=== PATIENT | female | born 1975 | race Two or more races ===

== ENCOUNTER 2019-04-12 21:18 | Emergency (ER) | payer MEDICAID ==
[~2019-04-12] VITALS: Ht 139.7 cm; Wt 65.8 kg
[2019-04-12 21:25] VITALS: BP 114/80
--- NOTE | 2019-04-12 21:25 | NUR ---
ED Nurse Note: pt walked in c/o cough and difficulty breathing x 2 wks.
--- NOTE | 2019-04-12 21:26 | NUR ---
ED Nurse Note: PT DENIES HISTORY OF ASTHMA/ COPD. PT DENIES TRYING NEW FOOD OR NEW MEDICATION. POSSIBLY ALLERGY TO ANIMAL DANDER D/T PT STATING SHE WAS PLAYING WITH A DOG
[2019-04-12] MEDS ORDERED: Albuterol ud Inhalation HHN ONE (21:45)
--- NOTE | 2019-04-12 21:50 | Emergency Room Report ---
History of Present Illness General Chief Complaint: Upper Respiratory Illness Source: Patient Present Illness HPI Is a 43-year-old female with no past medical history. She presents with chief complaint of cough and shortness of breath. Onset for last 2 weeks. Had sore throat initially. Now is coughing is nonproductive nature. Worse with inspiration. No nausea no vomiting. Also with chest tightness from all the coughing. No sick contact. No history of asthma. Allergies: Coded Allergies: No Known Allergies (Unverified , 04/12/19) Patient History Past Medical History: see triage record, old chart reviewed Past Surgical History: none Pertinent Family History: none Social History: Denies: smoking Last Menstrual Period: 03/31/19 Now: No Immunizations: other Reviewed Nursing Documentation: PMH: Agreed; PSxH: Agreed Nursing Documentation-PM Past Medical History: No Stated History Review of Systems Eye: Denies: eye pain, blurred vision ENT: Denies: ear pain, nose congestion, throat swelling Respiratory: Reports: cough, shortness of breath Cardiovascular: Denies: chest pain, palpitations Gastrointestinal: Denies: abdominal pain, diarrhea, nausea, vomiting Musculoskeletal: Denies: back pain, joint pain Skin: Denies: rash Neurological: Denies: headache, numbness Endocrine: Denies: increased thirst, increased urine Hematologic/Lymphatic: Denies: easy bruising All Other Systems: negative except mentioned in HPI Physical Exam Vital Signs Date Time Temp Pulse Resp B/P (MAP) Pulse Ox O2 Delivery O2 Flow Rate FiO2 04/12/19 21:22 98.2 82 18 114/80 (91) 99 Room Air Vitals normal Sp02 EP Interpretation: reviewed, normal General Appearance: well appearing, no apparent distress, alert Head: normocephalic, atraumatic Eyes: bilateral eye PERRL, bilateral eye EOMI ENT: hearing grossly normal, normal pharynx Neck: full range of motion, supple, no meningismus Respiratory: chest non-tender, other - Coughing fits with inspiration Cardiovascular #1: regular rate, rhythm, no murmur Gastrointestinal: normal bowel sounds, non tender, no mass, no organomegaly, no bruit, non-distended Musculoskeletal: back normal, gait/station normal, normal range of motion Psychiatric: mood/affect normal Medical Decision Making Diagnostic Impression: Primary Impression: Upper respiratory infection Qualified Codes: J06.9 - Acute upper respiratory infection, unspecified ER Course Patient with upper restaurant infection with bronchospasm. Better after breathing treatment. Because been ongoing for 2 weeks, we will treat with antibiotics also. No evidence of ACS, PE, dissection to name a few based on physical and history exam. Last Vital Signs Date Time Temp Pulse Resp B/P (MAP) Pulse Ox O2 Delivery O2 Flow Rate FiO2 04/12/19 21:25 82 18 Room Air 04/12/19 21:25 98.2 114/80 99 Status: improved Disposition: HOME, SELF-CARE Condition: Stable Scripts Azithromycin* (ZITHROMAX*) 250 Mg Tablet 250 MG ORAL DAILY, #6 TAB 0 Refills Take two tables once daily for 1 day, then one tablet once daily for 4 days. Prov: Bj Elizondo MD 04/12/19 Prednisone* (PREDNISONE*) 20 Mg Tablet 40 MG ORAL DAILY, #8 TAB Prov: Bj Elizondo MD 04/12/19 Albuterol Sulfate* (ALBUTEROL SULFATE MDI*) 8.5 Gm Hfa.aer.ad 2 PUFF INH Q4H PRN for cough/wheezing, #1 EA 0 Refills Prov: Bj Elizondo MD 04/12/19 Patient Instructions: Upper Respiratory Infection, Adult Additional Instructions: Increase fluids. Follow-up with your Dr. in 7 days. Return if worse. Bj Elizondo MD Apr 12, 2019 21:50
--- NOTE | 2019-04-12 21:51 | NUR ---
ED Nurse Note: RT AT BEDSIDE
[2019-04-12] MEDS ORDERED: ZITHROMAX250 MG ORAL (21:56)
[2019-04-12] MEDS ORDERED: ALBUTEROL SULF8.5 GM INH (21:56)
[2019-04-12] MEDS ORDERED: PREDNISONE20 MG ORAL (21:56)
[2019-04-12] MEDS ORDERED: Albuterol ud Inhalation ONE (21:57)
[2019-04-12 22:23] VITALS: BP 121/79
--- NOTE | 2019-04-12 22:23 | NUR ---
ER DISCHARGE NOTE: Patient is cleared to be discharged per ERMD, pt is aox4, on room air, with stable vital signs. pt was given dc and prescription instructions, pt was able to verbalize understanding, pt id band removed. pt is able to ambulate with steady gait. pt took all belongings.
== END 2019-04-12 22:23 | disposition home or self-care (01) ==
LOC: EMR 21:57
DX: J06.9 Acute upper respiratory infection, unspecified (principal)
CPT/HCPCS: 94640; 94664; 99284